=== PATIENT | female | born 1995 ===

== ENCOUNTER 2020-12-05 03:53 | Emergency (ER) | payer OTHER ==
[~2020-12-05] VITALS: Ht 167.6 cm; Wt 71.4 kg
[2020-12-05 04:22] LABS: STREP SCREEN NEGATIVE
[2020-12-05] MEDS ORDERED: PREDNISONE20 MG PO (04:28)
[2020-12-05 04:50] VITALS: BP 135/76; PULSE 96; TEMP 97.6
== END 2020-12-05 04:50 | disposition home or self-care (01) ==
LOC: COL.ER 03:53
PROVIDERS: Emergency Medicine
DX: J02.9 Acute pharyngitis, unspecified (principal)
CPT/HCPCS: J1100